=== PATIENT | female | born 1950 | race Caucasian/White ===

== ENCOUNTER 2019-06-19 09:46 | Outpatient (CLI) | payer OTHER | END 2019-06-19 09:57 | disposition home or self-care (01) | LOC: RAD 09:46 | DX: M25.512 Pain in left shoulder (principal) ==

== ENCOUNTER 2019-10-23 10:50 | Outpatient (CLI) | payer OTHER | END 2019-10-23 10:58 | disposition home or self-care (01) | LOC: MAMO-SONO 10:50 | DX: N60.11 Diffuse cystic mastopathy of right breast (principal); N60.12 Diffuse cystic mastopathy of left breast; Z12.31 Encounter for screening mammogram for malignant neoplasm of breast ==

== ENCOUNTER → 2019-11-09 | Outpatient (CLI) | payer OTHER | END | disposition home or self-care (01) | LOC: MAMO-SONO 08:15 → SONOGRAMA 08:34 | DX: R31.21 Asymptomatic microscopic hematuria (principal); D30.02 Benign neoplasm of left kidney ==

== ENCOUNTER 2021-01-21 12:43 | Outpatient (CLI) | payer OTHER | END 2021-01-21 12:49 | disposition home or self-care (01) | LOC: RAD 12:43 | PROVIDERS: ATTEND Physical Medicine & Rehabilitation | DX: M54.2 Cervicalgia (principal); M54.5 Low back pain ==

== ENCOUNTER → 2021-06-01 14:18 | Outpatient (CLI) | payer OTHER | END | disposition home or self-care (01) | LOC: NUCLEAR 05-22 14:00 | PROVIDERS: ATTEND Family Medicine | DX: M85.80 Other specified disorders of bone density and structure, unspecified site (principal); M81.0 Age-related osteoporosis without current pathological fracture ==

== ENCOUNTER 2021-12-01 08:43 | Outpatient (CLI) | payer OTHER | END 2021-12-01 08:48 | disposition home or self-care (01) | LOC: MAMO-SONO 08:43 | PROVIDERS: ATTEND Family Medicine | DX: N60.11 Diffuse cystic mastopathy of right breast (principal); N60.12 Diffuse cystic mastopathy of left breast; K30 Functional dyspepsia ==

== ENCOUNTER 2024-05-09 11:32 | Emergency (ER) | payer OTHER ==
[~2024-05-09] VITALS: Ht 157.5 cm; Wt 54.4 kg
[2024-05-09] MEDS ORDERED: NEURONTIN300 MG PO (11:39)
[2024-05-09 13:45] LABS: HEMATOCRIT 42.1 % (36.0-45.00); HEMOGLOBIN 14.3 g/dL (12.0-15.00); MEAN CORPUSCULAR HEMOGLOBIN 30.2 pg (27.00-32.0); MEAN CORPUSCULAR HGB CONC 33.9 g/dl (32.0-36.0); PLATELET COUNT 244 K/uL (150-450); RED BLOOD COUNT 4.73 M/uL (4.00-6.00); RED CELL DISTRIBUTION WIDTH 14.4 % (11.5-14.5)
[2024-05-09 14:34] LABS: CALCIUM 10.1 mg/dL (8.5-10.1); CREATININE SERUM 0.72 mg/dL (0.55-1.02); GFR 78.96; POTASSIUM 4.8 mEq/L (3.5-5.1)
== END 2024-05-09 16:48 | disposition home or self-care (01) ==
LOC: ER 11:33
PROVIDERS: General Practice
DX: G45.9 Transient cerebral ischemic attack, unspecified (principal); I10 Essential (primary) hypertension; I49.8 Other specified cardiac arrhythmias; M19.90 Unspecified osteoarthritis, unspecified site

== ENCOUNTER 2025-04-16 09:54 | Outpatient (CLI) | payer OTHER ==
[~2025-04-16 09:54] MED LIST: NEURONTIN300 MG PO
== END 2025-04-16 09:57 | disposition home or self-care (01) ==
LOC: SONOGRAMA 09:54
PROVIDERS: ATTEND Family Medicine
DX: R10.13 Epigastric pain (principal)